=== PATIENT | female | born 1940 | race Caucasian/White ===

== ENCOUNTER 2020-12-08 00:45 | Emergency (ER) | payer MEDICARE, OTHER ==
[~2020-12-08 00:45] MED LIST: Oxymetazoline HCl 0.05% ( 15 ML ) ONE
== END 2020-12-08 03:20 | disposition home or self-care (01) ==
LOC: CSHERS 00:45
DX: R04.0 Epistaxis (principal); E03.9 Hypothyroidism, unspecified; I10 Essential (primary) hypertension; Z79.899 Other long term (current) drug therapy
CPT/HCPCS: 99283